=== PATIENT | male | born 1945 | race Caucasian/White ===

== ENCOUNTER 2023-11-13 06:39 | Inpatient (IN) | payer MEDICARE, OTHER ==
[2023-11-06 10:59] LABS: BASOPHILS # (AUTO) 0.1 X10'3 (0-0.2); BASOPHILS % (AUTO) 0.8 % (0-1); EOSINOPHILS # (AUTO) 0.1 X10'3 (0-0.9); EOSINOPHILS % (AUTO) 1.7 % (0-6); LYMPHOCYTES # (AUTO) 1.9 X10'3 (1.1-4.8); LYMPHOCYTES % (AUTO) 26.5 % (21-51); MEAN CORPUSCULAR HEMOGLOBIN 31.5 PG (27.0-31.0); MEAN CORPUSCULAR HGB CONC 32.6 g/dL (33.0-36.5); MEAN CORPUSCULAR VOLUME 96.7 FL (78-98); MEAN PLATELET VOLUME 9.5 FL (7.4-10.4); MONOCYTES # (AUTO) 0.6 X10'3 (0-0.9); MONOCYTES % (AUTO) 8.8 % (2-12); NEUTROPHILS # (AUTO) 4.5 X10'3 (1.8-7.7); NEUTROPHILS % (AUTO) 62.2 % (42-75); PRE OP HEMATOCRIT 40.4 % (42.0-52.0); PRE OP HEMOGLOBIN 13.2 g/dL (14.0-17.9); PRE OP PLATELET COUNT 189 X10'3 (140-440); PRE OP WHITE BLOOD COUNT 7.3 10'3 (4.8-10.8); RED BLOOD COUNT 4.18 X10'6 (4.70-6.10); RED CELL DISTRIBUTION WIDTH 15.7 % (11.5-14.5)
[2023-11-06 11:20] LABS: ALBUMIN 3.4 G/DL (3.4-5.0); ALBUMIN/GLOBULIN RATIO 0.9 (1.1-1.5); ALKALINE PHOSPHATASE 94 IU/L (46-116); BLOOD UREA NITROGEN 17 MG/DL (7-18); BUN/CREATININE RATIO 13.2 (10.0-20.0); CALCIUM 8.9 MG/DL (8.5-10.1); CHLORIDE 108 MMOL/L (99-107); CREATININE 1.29 MG/DL (0.60-1.10); PRE OP ALT 15 U/L (30-65); PRE OP ANION GAP 8 (8-16); PRE OP AST 16 U/L (10-37); PRE OP BILIRUB, TOTAL 0.5 MG/DL (0.0-1.0); PRE OP GLUCOSE 101 MG/DL (70-104); PRE OP POTASSIUM 4.5 MMOL/L (3.4-5.1); PRE OP SODIUM 146 MMOL/L (135-145); TOTAL CARBON DIOXIDE 30.4 MMOL/L (24-32); TOTAL PROTEIN 7.2 G/DL (6.4-8.2); eGFR 54 ML/MIN
[2023-11-13] VITALS (19 sets, daily range): BP systolic 99–130; BP diastolic 51–94; PULSE 60–117; RESP 12–17; TEMP 97–98.9; O2SAT 93–98
[~2023-11-13] VITALS: Ht 182.9 cm; Wt 81.8 kg
[2023-11-13] MEDS: tranexamic acid inj. 1,000 MG in normal saline IV soln 100ML IV ONE (05:30)
[2023-11-13] MEDS: cefazolin 2gm/D5W 100mL 100 ML IV ONE (05:30)
[~2023-11-13 06:39] MED LIST: FLO0.4C PO
[2023-11-13] MEDS: BUPIVACAINE/MELOXICAM 14 ML VIAL IL ONE (06:54)
[2023-11-13] MEDS: vancomycin 1,000mg inj ONE (06:54)
[2023-11-13] MEDS: famotidine 20mg tablet PO ONE (07:03)
[2023-11-13] MEDS: vancomycin 1,500 MG in NS 300ml IV soln IV ONE (07:03)
[2023-11-13] MEDS: ringers solution, lacted 1,000 ML IV SCH ×2 (07:03→08:10)
[2023-11-13] MEDS ORDERED: ROPIVAcaine inj 200 MG, epiNEPHrine inj 0.6 MG, morphine 10mg/ml inj. 5 MG in normal sa... IU ONE (08:00)
[2023-11-13] MEDS ORDERED: meperidine/PF 25mg/ml syringe IV PRN ×3 (08:10)
[2023-11-13] MEDS ORDERED: ondansetron/PF 4mg/2ml inj IV PRN ×2 (08:10→12:25)
[2023-11-13] MEDS ORDERED: morphine 4 MG/ML inj SYRINge IV PRN (08:10)
[2023-11-13] MEDS: acetaminophen 1,000mg/100ml IV 100 ML IV ONE (08:10)
[2023-11-13] MEDS ORDERED: proCHLORperazine 10 MG/2 ml inj IV PRN (08:10)
[2023-11-13] MEDS ORDERED: morphine 2 MG/ML inj. syringe IV PRN (08:10)
[2023-11-13] MEDS ORDERED: ROPIVAcaine 0.2%/PF PUMP/bolus 545 ML ADDCANAL SCH (08:10)
[2023-11-13] MEDS ORDERED: hydrALAZINE 20mg/ml inj. IV PRN (08:10)
[2023-11-13] MEDS ORDERED: ROPIVAcaine 0.2% (10 MG/5 ML) BOLUS INJECTION ADDCANAL PRN (08:10)
[2023-11-13] MEDS: cloNIDine hcl/PF 100mcg/ml inj ONE (08:35)
[2023-11-13] MEDS ORDERED: sevoflurane 250ml liquid IH ONE (08:36)
[2023-11-13] MEDS ORDERED: midazolam 1 mg/ML 2ml injection ONE (08:37)
[2023-11-13] MEDS ORDERED: fentaNYL /PF 50mcg/ml 5ml ampule ONE (08:39)
[2023-11-13] MEDS ORDERED: ondansetron/PF 4mg/2ml inj ONE (09:15)
[2023-11-13] MEDS ORDERED: ROPIVAcaine 0.5% (5mg/ml) 30ml vial ONE (09:15)
[2023-11-13] MEDS ORDERED: dexamethasone sod phosphate 4mg/ml inj. ONE ×2 (09:15→11:32)
[2023-11-13] MEDS ORDERED: LIDOcaine 2% (20mg/ml) 5ml vial ONE (09:15)
[2023-11-13] MEDS ORDERED: 0.9 % SODIUM CHLORIDE 10 ML VIAL ONE ×2 (09:15→09:35)
[2023-11-13] MEDS ORDERED: rocuronium 10mg/ml inj IV ONE (09:15)
[2023-11-13] MEDS ORDERED: propofol inj 20 ML IV ONE (09:15)
[2023-11-13] MEDS ORDERED: ePHEDrine 50MG/ML INJ. ONE (09:35)
[2023-11-13] MEDS ORDERED: morphine 10mg/ml inj. ONE ×2 (10:21→11:01)
[2023-11-13] MEDS ORDERED: phenylephrine 10mg/ml inj. -priapism dosing ONE ×2 (11:27→11:32)
[2023-11-13] MEDS ORDERED: glycopyrrolate 0.2mg/ml inj ONE (11:46)
[2023-11-13] MEDS ORDERED: neostigmine methylsulfate 1 MG/ML 10ml vial ONE (11:46)
[2023-11-13] MEDS ORDERED: HYDROmorphone 1 mg/ml syringe IV PRN (12:25)
[2023-11-13] MEDS ORDERED: naloxone 0.4 mg/ml inj IV PRN (12:25)
[2023-11-13] MEDS ORDERED: HYDROmorphone inj. 0.5 MG/0.5 ML DISP.SYRIN IV PRN (12:25)
[2023-11-13] MEDS ORDERED: oxyCODONE IR 5mg (immed. release) tablet PO PRN ×2 (12:25)
[2023-11-13] MEDS ORDERED: bisacodyl 10mg suppository rectal RC PRN (12:25)
[2023-11-13] MEDS ORDERED: diphenhydrAMINE 25mg capsule PO PRN ×2 (12:25)
[2023-11-13] MEDS ORDERED: acetaminophen 325mg tablet PO PRN (12:25)
[2023-11-13] MEDS ORDERED: magnesium hydroxide 30ml (MOM) UD suspension PO PRN (12:25)
[2023-11-13] MEDS: gabapentin 300mg capsule PO SCH (13:00)
[2023-11-13] MEDS: acetaminophen 325mg tablet PO SCH (14:00)
[2023-11-13] MEDS: tranexamic acid inj. 800 MG in normal saline 100ml IV soln 92 ML IV ONE (17:07)
[2023-11-13] MEDS: potassium Cl 20mEq in NS 1,000 ML IV SCH (17:45)
[2023-11-13] MEDS: ceFAZolin/D5W- 1GM premix 50 ML IV SCH (17:46)
[2023-11-13] MEDS: LidoCAINE 2% Topical Jelly 11mL syringe (UROJET) TOP ONE (17:54)
[2023-11-13] MEDS: labetalol 20mg/4ml (5mg/ml) syringe IV PRN (19:19)
[2023-11-13] MEDS: sennosides 8.6mg tablet PO SCH (20:24)
[2023-11-13] MEDS: vancomycin/NS 1 GM ADD-VANTAGE 250 ML IV SCH (20:25)
[2023-11-14 02:22] VITALS: BP 112/62; PULSE 71; RESP 16; TEMP 97.6; O2SAT 94
[2023-11-14 06:00] VITALS: BP 93/60; PULSE 67; RESP 18; TEMP 97.9; O2SAT 96
[2023-11-14] MEDS: tamsulosin 0.4mg capsule PO SCH (08:57)
[2023-11-14] MEDS: enoxaparin 40mg/0.4ml syringe SQ SCH (08:58)
[2023-11-14 10:00] VITALS: BP 109/60; PULSE 96; RESP 20; TEMP 97.8; O2SAT 96
[2023-11-14] MEDS: LidoCAINE 2% Topical Jelly 11mL syringe (UROJET) TOP ONE (15:15)
[2023-11-14] MEDS ORDERED: celeCOXIB 100mg capsule PO SCH (20:00)
[2023-11-15] MEDS ORDERED: acetaminophen 325mg tablet PO PRN (12:25)
== END 2023-11-14 17:45 | disposition home health service (06) | DRG 470 ==
LOC: PAS IN 06:39 → ORTHO 4S 12:34
PROVIDERS: ADMIT Orthopaedic Surgery; ATTEND Orthopaedic Surgery
PROC: 3E0T3BZ Introduction of Anesthetic Agent into Peripheral Nerves and Plexi, Percutaneous Approach (ICD-10-PCS; 2023-11-13)
PROC: 0SRD0J9 Replacement of Left Knee Joint with Synthetic Substitute, Cemented, Open Approach (ICD-10-PCS; principal; 2023-11-13 08:36)
DX: M17.12 Unilateral primary osteoarthritis, left knee (principal)
CPT/HCPCS: 36415; 73560; 80053; 82948; 85025; 87081; 93005; 97116; 97161; 97530; A4215; A4314; A4358; A4615; A5200; A6253; A6258; A6446; A6449; A6454; A7000; C1713; C1758; C1776; C9250; G0378; J0690; J0735; J1100; J1650; J2250; J2274; J2370; J2405; J2704; J2710; J2795; J3010; J3370; J3480; J3490; J7120